=== PATIENT | female | born 1990 | race American Indian/Alaskan Native ===

== ENCOUNTER 2022-02-10 21:25 | Emergency (ER) | payer SELFPAY ==
[2022-02-10 21:29] VITALS: BP 130/90
--- NOTE | 2022-02-11 01:25 | Emergency Department Report ---
ED General Adult HPI - General Chief complaint: Fever Stated complaint: CP,BODY PAIN, HOT AND COLD FLASHES Time Seen by Provider: 02/11/22 01:06 Source: patient Mode of arrival: Ambulatory Limitations: No Limitations - History of Present Illness Initial comments: Patient is 31-year-old female with history of palpitations controlled by diltiazem, who presents presents for generalized body aches and chills x2 days. Patient denies fevers or chills no dysuria frequency or urgency. Patient denies productive cough. Symptoms are exacerbated by activity. Symptoms are relieved by nothing tried. Patient denies fever. Last menstrual cycle 3 weeks ago chela huntley patient is on Implanon control. Patient is tolerating p.o. intake - Related Data Previous Rx's Medication Instructions Recorded Last Taken Type Ibuprofen [Motrin 800 MG tab] 800 mg PO Q8HR PRN #30 tablet 02/11/22 Unknown Rx Ondansetron [Zofran Odt] 4 mg PO Q8HR PRN #12 tab.rapdis 02/11/22 Unknown Rx Allergies Allergy/AdvReac Type Severity Reaction Status Date / Time No Known Allergies Allergy Verified 02/10/22 21:30 ED Review of Systems ROS: Stated complaint: CP,BODY PAIN, HOT AND COLD FLASHES Other details as noted in HPI Constitutional: chills, malaise Eyes: denies: eye pain, eye discharge, vision change ENT: denies: ear pain, throat pain, congestion Respiratory: denies: cough, shortness of breath, wheezing Cardiovascular: chest pain. denies: palpitations Endocrine: no symptoms reported Gastrointestinal: denies: abdominal pain, nausea, vomiting, diarrhea Genitourinary: denies: urgency, dysuria, discharge Musculoskeletal: back pain, other (Body aches) Skin: denies: rash, lesions Neurological: headache. denies: numbness, paresthesias, confusion, vertigo Psychiatric: denies: anxiety, depression Hematological/Lymphatic: denies: easy bleeding, easy bruising ED Past Medical Hx - Medications Home Medications: Home Medications Medication Instructions Recorded Confirmed Last Taken Type Ibuprofen [Motrin 800 MG tab] 800 mg PO Q8HR PRN #30 tablet 02/11/22 Unknown Rx Ondansetron [Zofran Odt] 4 mg PO Q8HR PRN #12 tab.rapdis 02/11/22 Unknown Rx ED Physical Exam - General Limitations: No Limitations General appearance: alert, in no apparent distress - Head Head exam: Present: normocephalic, normal inspection - Eye Eye exam: Present: EOMI Pupils: Present: normal accommodation - ENT ENT exam: Present: normal orophraynx, mucous membranes moist - Neck Neck exam: Present: normal inspection, full ROM - Respiratory Respiratory exam: Present: normal lung sounds bilaterally. Absent: respiratory distress, wheezes, stridor, chest wall tenderness - Cardiovascular Cardiovascular Exam: Present: regular rate, normal rhythm, normal heart sounds. Absent: systolic murmur, diastolic murmur, rubs, gallop - GI/Abdominal GI/Abdominal exam: Present: soft, normal bowel sounds. Absent: distended, tenderness, guarding, rebound, rigid, bruit, hernia - Rectal Rectal exam: Present: deferred - Extremities Exam Extremities exam: Present: normal inspection, full ROM, normal capillary refill. Absent: tenderness - Back Exam Back exam: Present: normal inspection, full ROM. Absent: CVA tenderness (R), CVA tenderness (L) - Neurological Exam Neurological exam: Present: alert, oriented X3, CN II-XII intact, normal gait - Expanded Neurological Exam Expanded Patient oriented to: Present: person, place, time Speech: Present: fluid speech Motor strength exam: RUE: 5, LUE: 5, RLE: 5, LLE: 5 Best Eye Response ([place]): (4) open spontaneously Best Motor Response ([place]): (6) obeys commands Best Verbal Response ([place]): (5) oriented [place] Total: 15 - Psychiatric Psychiatric exam: Present: normal affect, normal mood - Skin Skin exam: Present: warm, dry, intact, normal color. Absent: rash ED Course Vital Signs 02/10/22 21:28 Temperature 98.3 F Pulse Rate 98 H Respiratory 18 Rate Blood Pressure 130/90 O2 Sat by Pulse 99 Oximetry ED Medical Decision Making - Lab Data Result diagrams: 02/11/22 01:42 02/11/22 01:42 Labs 02/11/22 02/11/22 02/11/22 01:42 01:42 Unknown WBC 6.8 RBC 4.56 Hgb 13.8 Hct 41.3 MCV 91 MCH 30 MCHC 33 RDW 12.6 L Plt Count 277 Sodium 139 Potassium 3.8 Chloride 103.2 Carbon Dioxide 24 Anion Gap 16 BUN 10 Creatinine 0.5 L Estimated GFR > 60 BUN/Creatinine Ratio 20 Glucose 105 H Calcium 8.6 Total Bilirubin 0.20 AST 16 ALT 20 Alkaline Phosphatase 60 Total Protein 7.1 Albumin 4.6 Albumin/Globulin Ratio 1.8 Urine Color Yellow Urine Turbidity Clear Urine pH 7.0 Ur Specific [place] 1.015 Urine Protein 30 mg/dl Urine Glucose (UA) Negative Urine Ketones Negative Urine Blood Negative Urine Nitrite Negative Urine Bilirubin Negative Urine Urobilinogen 0.2 Ur Leukocyte Esterase Negative Urine WBC (Auto) 2.0 Urine RBC (Auto) 5.0 U Epithel Cells (Auto) 6.0 Urine Mucus 2+ Urine HCG, Qual Negative - EKG Data EKG shows normal: sinus rhythm, axis, intervals, QRS complexes, ST-T waves Rate: normal - EKG Data When compared to previous EKG there are: previous EKG unavailable Interpretation: normal EKG (Normal sinus rhythm no ST elevated DC interpreted by ED attending) - Radiology Data Radiology results: report reviewed, image reviewed XR chest routine 2V INDICATION / CLINICAL INFORMATION: chest pain. COMPARISON: None available. FINDINGS: SUPPORT DEVICES: None. HEART /PULMONARY VASCULATURE: No significant abnormality. LUNGS / PLEURA: No significant pulmonary or pleural abnormality. No pneumotho rax. ADDITIONAL FINDINGS: No significant additional findings. IMPRESSION: 1. No acute findings. Signer Name: Yimi Rangel MD Signed: 02/11/2022 2:28 AM Workstation Name: [id number] Transcribed By: JS Dictated By: YIMI RANGEL MD Electronically Authenticated By: YIMI RANGEL MD Signed Date/Time: 02/11/22227 DD/ 7 TD/TT: - Medical Decision Making Chest x-ray no infiltrates no opacities, EKG normal sinus rhythm no ST elevated DC in interpreted by ED attending, labs are non-actionable. Heart score 0 CARLOS score 0, pain is improved with medications given in ED. This is likely viral syndrome plan DC home follow-up primary care doctor in 2 to 3 days. Return to emergency department should symptoms worsen. Patient is currently alert oriented x3 tolerating p.o. intake without nausea vomiting. There is no fevers no chills no rigors at this time Critical care attestation.: If time is entered above; I have spent that time in minutes in the direct care of this critically ill patient, excluding procedure time. ED Disposition Clinical Impression: Viral illness Disposition: 01 HOME / SELF CARE / HOMELESS Is pt being admited?: No Does the pt Need Aspirin: No Condition: Stable Instructions: Viral Illness, Adult Additional Instructions: Take medications as prescribed, hydrate as directed. Follow-up with your primary care doctor in 2 to 3 days. Return to emergency department should symptoms worsen Prescriptions: Ibuprofen [Motrin 800 MG tab] 800 mg PO Q8HR PRN #30 tablet PRN Reason: Pain fever Ondansetron [Zofran Odt] 4 mg PO Q8HR PRN #12 tab.rapdis PRN Reason: Nausea Referrals: [facility] [Provider Group] - 3-5 Days Forms: Work/School Release Form(ED) Time of Disposition: 02:54
[2022-02-11] MEDS ORDERED: IBUPROFEN 800 MG TAB PO ONE (01:27)
[2022-02-11] MEDS ORDERED: ONDANSETRON 4 MG ODT TAB PO ONE (01:27)
[2022-02-11 02:03] LABS: Bilirubin,Urine Negative (Negative); Color,Urine Yellow (Yellow)
[2022-02-11 02:04] LABS: Blood,Urine Negative (Negative); Urobilinogen,Urine 0.2 mg/dL (<2.0)
[2022-02-11 02:05] LABS: Mucus,Urine 2+ /HPF
[2022-02-11 02:06] LABS: HCG Qualitative,Urine Negative (Negative)
[2022-02-11 02:23] LABS: Hematocrit 41.3 % (30.3-42.9); Hemoglobin 13.8 gm/dl (10.1-14.3); Mean Corpuscular HGB Conc 33 % (30-34); Mean Corpuscular Volume 91 fl (79-97); Platelet Count 277 K/mm3 (140-440); Red Blood Count 4.56 M/mm3 (3.65-5.03); Red Cell Distribution Width 12.6 % (13.2-15.2)
[2022-02-11 02:32] LABS: Alanine Aminotransferase 20 units/L (7-56); Albumin 4.6 g/dL (3.9-5); Blood Urea Nitrogen 10 mg/dL (7-17); Calcium 8.6 mg/dL (8.4-10.2); Hemolysis Index 18
--- NOTE | 2022-02-11 02:32 | XRay Report ---
XR chest routine 2V INDICATION / CLINICAL INFORMATION: chest pain. COMPARISON: None available. FINDINGS: SUPPORT DEVICES: None. HEART /PULMONARY VASCULATURE: No significant abnormality. LUNGS / PLEURA: No significant pulmonary or pleural abnormality. No pneumothorax. ADDITIONAL FINDINGS: No significant additional findings. IMPRESSION: 1. No acute findings. Signer Name: John Stewart MD Signed: 02/11/2022 2:28 AM Workstation Name: [id number]
[2022-02-11 02:34] LABS: BUN/Creatinine Ratio 20
[2022-02-11 03:34] LABS: Basophils % (Manual) 0 % (0.0-1.8); Total Cells Counted 100
[2022-02-11 03:35] LABS: Platelet Estimate Consistent w Auto; Smudge Cells Few
--- NOTE | 2022-02-11 08:59 | Electrocardiograph Report ---
[facility] Test Date: 2022-02-10 Test Time: 21:32:44 Pat Name: JOSUE GONZALEZ Department: Room: Gender: F Supervisory Historian: CHRIS : 1990 Requested By: VIRGINIA IRELAND Order Number: [id number] Reading MD: Tony Zayas Measurements Intervals [place] Rate: 91 P: 66 OR: 129 QRS: 55 QRSD: 81 T: 39 QT: 342 QTc: 422 Interpretive Statements Sinus rhythm No previous ECG available for comparison Electronically Signed On 02-11-2022 8:59:00 EDT by Tony Zayas
== END 2022-02-11 03:47 | disposition home or self-care (01) ==
LOC: ED 21:25
DX: B34.9 Viral infection, unspecified (principal)
CPT/HCPCS: 36415; 71046; 80053; 81001; 81025; 85007; 85025; 93005; 99284; J3490; Q0162